=== PATIENT | female | born 1945 | race Caucasian/White ===

== ENCOUNTER → 2018-05-31 | Day surgery (SDC) | payer MEDICARE, OTHER ==
[~2018-05-31] MED LIST: Lactated Ringers 1,000 ML IV SCH; Propofol 200 MG/20 ML SDV IV ONE
--- NOTE | 2018-06-03 09:58 | OR ---
DATE OF OPERATION: 05/31/2018 PREOPERATIVE DIAGNOSIS: SCREENING COLONOSCOPY. POSTOPERATIVE DIAGNOSIS: SCREENING COLONOSCOPY. SURGEON: Vik Persaud MD PROCEDURE: FULL-LENGTH COLONOSCOPY. ANESTHESIA: TOLL REPAIRER CENTRAL OFFICE due to morbid obesity. COMPLICATIONS: None. SPECIMEN: None. FINDINGS: A normal full-length colonoscopy. RECOMMENDATIONS: Followup colonoscopy every 10 years. INDICATIONS: The patient was seen by her primary provider. She has never had a prior colonoscopy and was sent for a screening procedure. DESCRIPTION OF PROCEDURE: The patient was prepped and draped, placed in the left lateral decubitus position. A lubricated Olympus colonoscope was inserted and advanced to the cecum. We were able to directly visualize the ileocecal valve and appendiceal orifice. The bowel prep was excellent. Upon withdrawal of the scope, throughout the entire length of the colon, I could find no signs of any polyps, mass, ulceration, or bleeding sites. No vascular abnormalities or signs of colitis. There were no diverticula. The rectal vault was benign. Retroflexion scope in the rectum showed no anal lesions. Air was suctioned, scope was removed without complication. NURYS/SVETA /[id number]
== END ==
LOC: CC.SDS 08:20
PROVIDERS: ATTEND Family Medicine
DX: Z12.11 Encounter for screening for malignant neoplasm of colon (principal); I10 Essential (primary) hypertension; E66.01 Morbid (severe) obesity due to excess calories; Z85.3 Personal history of malignant neoplasm of breast; Z92.21 Personal history of antineoplastic chemotherapy; Z92.3 Personal history of irradiation; Z79.82 Long term (current) use of aspirin; Z79.899 Other long term (current) drug therapy; Z90.11 Acquired absence of right breast and nipple
CPT/HCPCS: G0121; J2704; J7120; 00812